=== PATIENT | female | born 1950 | race Hispanic/Latino ===

== ENCOUNTER 2024-06-21 15:37 | Emergency (ER) | payer MEDICARE ==
[~2024-06-21] VITALS: Ht 162.6 cm; Wt 79.8 kg
[2024-06-21] MEDS ORDERED: IBUPROFEN600 MG PO (16:55)
[2024-06-21] MEDS: IBUPROFEN 600 MG TAB PO STA (16:56)
[2024-06-21 17:28] VITALS: PULSE 81; RESP 16; TEMP 98.2; O2SAT 99
== END 2024-06-21 17:23 | disposition home or self-care (01) ==
LOC: FSED 15:51
DX: S93.492A Sprain of other ligament of left ankle, initial encounter (principal); X50.1XXA Overexertion from prolonged static or awkward postures, initial encounter; Y93.01 Activity, walking, marching and hiking; Y92.89 Other specified places as the place of occurrence of the external cause; E78.5 Hyperlipidemia, unspecified; E03.9 Hypothyroidism, unspecified
CPT/HCPCS: 99283